=== PATIENT | female | born 1970 | race Caucasian/White ===

== ENCOUNTER → 2018-01-14 | Outpatient (CLI) | payer MEDICARE ==
[~2018-01-14] MED LIST: ALBU8.5H8 INH; BUDE10.2 INH; CYCL-259 PO; DOXY100C2 PO; FLUO40CA9 PO; LOSA25TA5 PO; MONT10TA6 PO; MULT-26 PO; OXYGEN; TRAM50TA2 PO
== END | disposition home or self-care (01) ==
LOC: CFH 09:30
PROVIDERS: ATTEND Internal Medicine
DX: K43.9 Ventral hernia without obstruction or gangrene (principal); I70.0 Atherosclerosis of aorta; Q79.59 Other congenital malformations of abdominal wall
CPT/HCPCS: 74176

== ENCOUNTER → 2018-04-29 | Outpatient (CLI) | payer MEDICARE | END | disposition home or self-care (01) | LOC: CFH 09:43 | PROVIDERS: ATTEND Family Medicine | DX: Z12.31 Encounter for screening mammogram for malignant neoplasm of breast (principal); Z80.3 Family history of malignant neoplasm of breast | CPT/HCPCS: 77067 ==

== ENCOUNTER → 2019-05-01 | Outpatient (CLI) | payer MEDICARE ==
[~2019-05-01] MED LIST changes: +LOSA25TA25 PO; -LOSA25TA5 PO
== END | disposition home or self-care (01) ==
LOC: CFH 10:42
PROVIDERS: ATTEND Family Medicine
DX: Z12.31 Encounter for screening mammogram for malignant neoplasm of breast (principal)
CPT/HCPCS: 77067

== ENCOUNTER → 2020-05-17 | Outpatient (CLI) | payer MEDICARE | END | disposition home or self-care (01) | LOC: CFH 09:38 | PROVIDERS: ATTEND Family Medicine | DX: Z12.31 Encounter for screening mammogram for malignant neoplasm of breast (principal) | CPT/HCPCS: 77067 ==

== ENCOUNTER → 2021-05-27 | Outpatient (CLI) | payer MEDICARE ==
[~2021-05-27] MED LIST changes: -CYCL-259 PO; +CYCL10TA2 PO
== END | disposition home or self-care (01) ==
LOC: CFH 09:35
PROVIDERS: ATTEND Family Medicine
DX: Z12.31 Encounter for screening mammogram for malignant neoplasm of breast (principal)
CPT/HCPCS: 77067

== ENCOUNTER 2021-05-30 09:00 | Outpatient (CLI) | payer MEDICARE ==
[~2021-05-30 09:00] MED LIST changes: -DOXY100C2 PO; +DOXY100C5 PO
== END 2021-05-30 23:59 | disposition home or self-care (01) ==
LOC: CFH 09:00 → RAD 23:59
PROVIDERS: ATTEND Family Medicine
DX: Z02.9 Encounter for administrative examinations, unspecified (principal)